=== PATIENT | male | born 1965 | race Two or more races ===

== ENCOUNTER 2016-11-13 11:43 | Day surgery (SDC) | payer BC ==
--- NOTE | ~2016-11-13 | EGD ---
EGD REPORT [facility] [address] [address] NAME: MAGED HODGSON : [birth year] STATUS : PRE [facility] [place] PAT#: [id number] AGE: 51 ADM/REG DATE : MR#: [id number] REPORT SERV DATE: 11/13/16 DICTATED BY: CLAUDIA BEST DATE: 11/13/16 REPORT STATUS : Draft TRANSCRIBED BY: [employer] DATE: 11/13/16 [facility] Patient Name: Maged Hodgson Date of : 1965 Attending MD: CLAUDIA BEST MD Procedure Date No Time: 11/13/2016 Procedure: Colonoscopy Indications: Screening for colorectal malignant neoplasm Referring MD: PATSY HE MD, PELON HERRERA Medicines: as per anesthesia Complications: No immediate complications. Procedure: Pre-Anesthesia Assessment: - ASA Grade Assessment: II - A patient with mild systemic disease. After I obtained informed consent, the scope was passed under direct vision. Throughout the procedure, the patient's blood pressure, pulse, and oxygen saturations were monitored continuously. The PCF [id number] was introduced through the anus and advanced to the cecum, identified by appendiceal orifice and ileocecal valve. The colonoscopy was somewhat difficult due to poor bowel prep. The patient tolerated the procedure. The quality of the bowel preparation was poor. Findings: The perianal and digital rectal examinations were normal. Two sessile polyps were found in the rectum. The polyps were 3 to 6 mm in size. These polyps were removed with a jumbo cold forceps. Resection and retrieval were complete. Internal hemorrhoids were found during endoscopy and were mild. Impression: - Preparation of the colon was poor. - Two 3 to 6 mm polyps in the rectum. Resected and retrieved. - Internal hemorrhoids. Recommendation: - Await pathology results. - Repeat colonoscopy for surveillance based on pathology results. Procedure Code(s): --- Professional --- 35066, Colonoscopy, flexible, proximal to splenic flexure; with biopsy, single or multiple Diagnosis Code(s): --- Professional --- EGD REPORT [facility] [address] [address] NAME: MAGED HODGSON : [birth year] STATUS : PRE [facility] [place] PAT#: [id number] AGE: 51 ADM/REG DATE : MR#: [id number] REPORT SERV DATE: 11/13/16 DICTATED BY: CLAUDIA BEST DATE: 11/13/16 REPORT STATUS : Draft TRANSCRIBED BY: [employer] DATE: 11/13/16 K64.8, Other hemorrhoids K62.1, Rectal polyp Z12.11, Encounter for screening for malignant neoplasm of colon CPT copyright 2013 [employer]. All rights reserved. The codes documented in this report are preliminary and upon casting agent review may be revised to meet current compliance requirements. CLAUDIA BEST MD 11/13/2016 2:17 PM This report has been signed electronically. Number of Addenda: 0 Note Initiated On: 11/13/2016 1:19 PM Scope Withdrawal Time 0 hours 13 minutes 16 seconds [id number] [id number]
[~2016-11-13 11:43] MED LIST: ATEN50 PO; CINNAMONPO PO; CIP5 PO; CRAN CONC500 MG PO; FLOMAX4 PO; GARLIC PO; MEVACOR PO; MILK THISTLE PO; PR25 PO; PROBIOTIC PO; RED YEAS1 PO; T3 PO; TURMERIC PO; VASOTEC20 MG PO; VITAMIN D31000 UNIT PO; VITC500 PO; VITE PO
== END 2016-11-13 23:59 | disposition home or self-care (01) ==
LOC: DMU 11:43
PROVIDERS: Internal Medicine Gastroenterology
PROC: 0DBP8ZX Excision of Rectum, Via Natural or Artificial Opening Endoscopic, Diagnostic (ICD-10-PCS; principal; 2016-11-13 12:00)
DX: Z12.11 Encounter for screening for malignant neoplasm of colon (principal); D12.8 Benign neoplasm of rectum; N20.0 Calculus of kidney; I10 Essential (primary) hypertension; Z88.0 Allergy status to penicillin; Z79.899 Other long term (current) drug therapy; Z98.890 Other specified postprocedural states
CPT/HCPCS: 88305